=== PATIENT | male | born 1945 | race Caucasian/White ===

== ENCOUNTER 2017-09-22 21:44 | Inpatient (IN) | payer OTHER ==
[~2017-09-22] VITALS: Ht 172.7 cm; Wt 77.0 kg
[~2017-09-22 21:44] MED LIST: ACID REDUCER 1150 MG PO; LIPITOR80 MG PO; LO-DOSE ASPIRIN81 M2 PO; LOPRESSOR25 MG PO; MULTI-DAY PLUS1 EACH PO; PRESERVISION T1 EACH PO; VITAMIN B-6100 MG PO
[2017-09-23] VITALS (12 sets, daily range): BP systolic 109–131; BP diastolic 38–73
[2017-09-23] MEDS ORDERED: HYDROCODON-ACE1 EAC7 PO (11:46)
[2017-09-24] VITALS (11 sets, daily range): BP systolic 108–140; BP diastolic 45–517
== END 2017-09-24 09:52 | disposition home or self-care (01) | DRG 39 ==
LOC: CANRESERV 21:44 → ENRESERV 21:44 → 2SOUTH 09-23 05:28 → 4WEST 09-23 09:10 → ENRESERV 09-23 09:33 → 4WEST 09-23 10:23 → 2SOUTH 09-23 15:20 → 4WEST 09-23 17:10 → ENRESERV 09-24 04:58 → 4WEST 09-24 09:52
DX: I65.23 Occlusion and stenosis of bilateral carotid arteries (principal); I25.10 Atherosclerotic heart disease of native coronary artery without angina pectoris; I10 Essential (primary) hypertension; Z95.1 Presence of aortocoronary bypass graft; Z87.891 Personal history of nicotine dependence; Z79.82 Long term (current) use of aspirin
CPT/HCPCS: 80048; 85027; 87641; 93005; J0330; J0690; J1100; J1170; J1644; J2405; J2720; J2795; J3010; J7120; S0020